=== PATIENT | female | born 1935 ===

== ENCOUNTER → 2016-10-06 | Outpatient (CLI) | payer MEDICARE, BC ==
[2016-10-06 11:03] LABS: EKG EKG PERFORMED
[2016-10-06 11:27] LABS: Basophils # (A) 0.1 k/uL (0-0.2); Basophils % (A) 1 %; CH 32.4; CHCM 33.5; Eosinophils # (A) 0.2 k/uL (0-0.7); Eosinophils % (A) 3 %; HCT 38.1 % (34.0-46.0); HDW 2.52; HGB 13.1 gm/dL (11.4-16.0); Large Platelets Flag Slight; Luc # (Auto) 0.35; Luc % (Auto) 4; Lymphocytes # (A) 2.4 k/uL (1.0-4.8); Lymphocytes % (A) 27 %; MCH 33.4 pg (25.0-35.0); MCHC 34.4 g/dL (31.0-37.0); MCV 97.2 fL (80.0-100.0); Mean Platelet Volume 10.2; Monocytes # (A) 0.8 k/uL (0-1.0); Monocytes % (A) 9 %; Neutrophils # (A) 5.2 k/uL (1.3-7.7); Neutrophils % (A) 58 %; RBC 3.92 m/uL (3.80-5.40); RDW 13.4 % (11.5-15.5); WBC 9.1 k/uL (3.8-10.6); WBC (Perox) 8.18
[2016-10-06 11:33] LABS: Anion Gap 12 mmol/L; Blood Urea Nitrogen 27 mg/dL (7-17); Carbon Dioxide 22 mmol/L (22-30); Chloride 104 mmol/L (98-107); Glucose 202 mg/dL (74-99); Non-African American GFR(MDRD) 48 (>60 ml/min/1.73 sqM); Potassium 4.2 mmol/L (3.5-5.1); Sodium 138 mmol/L (137-145)
== END | disposition home or self-care (01) ==
LOC: LABPAT 10:43
PROVIDERS: ATTEND Urology
DX: Z01.810 Encounter for preprocedural cardiovascular examination (principal); Z01.818 Encounter for other preprocedural examination; I10 Essential (primary) hypertension; E78.5 Hyperlipidemia, unspecified; E11.9 Type 2 diabetes mellitus without complications; N39.46 Mixed incontinence; R35.0 Frequency of micturition
CPT/HCPCS: 80048; 85025; 87086; 93005

== ENCOUNTER 2016-10-14 11:13 | Day surgery (SDC) | payer MEDICARE, BC ==
[2016-10-11 12:33] VITALS: BMI 44.9
[~2016-10-14 11:13] MED LIST: HYDROmorphone 1 MG/ML 1 ML SYRINGE IVP PRN; LACTATED RINGERS 1,000 ML IV SCH; MIDAZOLAM 2 MG/2 ML VIAL IV PRN; ONDANSETRON 4 MG/2 ML VIAL IVP ONE; ceFAZolin 2 GM in SODIUM CHLORIDE 0.9% 100 ML IVPB ONE
[2016-10-14] MEDS ORDERED: LIDOCAINE 1% 20 ML VIAL (10MG/ML) FOR IV START INTRADERMA ONE (12:13)
[2016-10-14] MEDS ORDERED: DEXAMETHASONE SOD PHOS (MDV) 100 MG/10 ML VIAL IV ONE (12:22)
[2016-10-14 12:26] LABS: Glucose,Whole Blood 178 mg/dL (75-99)
[2016-10-14] MEDS ORDERED: PROPOFOL 10 MG/ML 20 ML VIAL IV ONE (12:42)
[2016-10-14] MEDS ORDERED: MIDAZOLAM 2 MG/2 ML VIAL ONE (12:42)
[2016-10-14] MEDS ORDERED: LIDOCAINE 1% INJ 10MG/ML (20 ML MDV) ONE (12:42)
[2016-10-14] MEDS ORDERED: SUCCINYLCHOLINE CHLORIDE 100 MG/5 ML SYR IV ONE (12:42)
[2016-10-14] MEDS ORDERED: ePHEDrine 50 MG/ML 1 ML AMP ONE (12:42)
[2016-10-14] MEDS ORDERED: fentaNYL (PF) 50 MCG/ML 2 ML AMP ONE (12:42)
--- NOTE | 2016-10-14 13:40 | P.OP ---
Date of Procedure: 10/14/16 Preoperative Diagnosis: Mixed Urinary Incontinence, Intrinsic Sphincter Deficiency Postoperative Diagnosis: Same Procedure(s) Performed: Cystoscopy with Intraurethral Coaptite Injection Implants: Anesthesia: BALAJIA Surgeon: August Horton Estimated Blood Loss (ml): 5 IV fluids (ml): 500 Pathology: none sent Condition: stable Disposition: PACU Indications for Procedure: Mrs Wade has mixed urinary incontinence. She has a history of bladder suspension and hysterectomy remotely. Her comorbidities are obesity, diabetes and multiparity. Vesicare, Toviaz, and Myrbetriq (along with pelvic floor rehab ) helped marginally. Stress incontinence improved following a TOT sling, but she continued to experience significant urge incontinence. On examination, the bladder is well supported. There is no urethral hypermobility. Bladder emptying is complete. Urodynamic testing was consistent with intrinsic sphincter deficiency, and she underwent Coaptite injections. Her incontinence essentially resolved but has recurred. She has been treated for UTIs, and urinalysis today shows no evidence of infection, but the incontinence persists. In view of this, she will undergo repeat Coaptite injections. Operative Findings: Excellent coaptation achieved. Description of Procedure: The patient was taken to the operating room and placed in the dorsolithotomy position, with her legs supported in Jonn stirrups. The external genitalia was prepped and draped sterilely. The 30 lens was used to introduce the 19- Austrian start cystoscopic sheath through the urethra and into the bladder under direct vision. The urethra was unremarkable. The bladder was examined in its entirety. Both ureteral orifices were normal anatomic location and configuration, and clear urine effluxed from both. No tumors or foreign bodies were seen. The long transurethral needle was passed through a 20-Austrian sheath specially designed for injection. The cystoscope was advanced to the level of the mid urethra. The needle was then advanced such that a perforated the mucosa, and it was then advanced within the submucosal plane to the level of the proximal urethra. Coaptite was injected in 4 sites. A total of 4 syringes were injected. Very good coaptation of the proximal urethra was achieved. The bladder was drained, and the procedure was terminated. The patient tolerated the procedure well was taken to the recovery room in stable condition.
[2016-10-14 13:43] VITALS: TEMP 97.2
[2016-10-14 14:03] VITALS: RESP 16
[2016-10-14] MEDS: LABETALOL 5 MG/ML VIAL MDV IVP ONE ×2 (14:10→14:23)
[2016-10-14 14:41] LABS: Glucose,Whole Blood 158 mg/dL (75-99)
[2016-10-14] MEDS ORDERED: SODIUM CHLORIDE 0.9% 1,000 ML IV ONE (14:55)
[2016-10-14 15:25] VITALS: BP 126/75; PULSE 102
[2016-10-14 15:26] LABS: Glucose,Whole Blood 194 mg/dL (75-99)
== END 2016-10-14 15:34 | disposition home or self-care (01) ==
LOC: OR 11:13
PROVIDERS: ATTEND Urology
DX: N39.46 Mixed incontinence (principal); N36.42 Intrinsic sphincter deficiency (ISD); E78.5 Hyperlipidemia, unspecified; I11.0 Hypertensive heart disease with heart failure; E11.9 Type 2 diabetes mellitus without complications; Z79.4 Long term (current) use of insulin; E66.9 Obesity, unspecified; Z68.41 Body mass index [BMI] 40.0-44.9, adult; Z79.899 Other long term (current) drug therapy
CPT/HCPCS: 51715; L8606; J2250; J0690; J2405; J2001; J3010; J1100; J0330; J2704